=== PATIENT | female | born 1980 | race Caucasian/White ===

== ENCOUNTER 2020-03-17 00:45 | Emergency (ER) | payer OTHER ==
[~2020-03-17] VITALS: Ht 160 cm; Wt 49.9 kg
[2020-03-17 00:51] VITALS: Ht 160 cm; Wt 49.9 kg
[2020-03-17 06:21] VITALS: BP 108/77
== END 2020-03-17 06:21 | disposition home or self-care (01) ==
LOC: ED 00:45
DX: F17.210 Nicotine dependence, cigarettes, uncomplicated (principal)

== ENCOUNTER 2020-03-17 15:06 | Emergency (ER) | payer OTHER ==
[~2020-03-17] VITALS: Ht 167.6 cm; Wt 70.3 kg
[2020-03-17 15:12] VITALS: Ht 167.6 cm; Wt 70.3 kg
[2020-03-17 15:34] VITALS: BP 135/71
== END 2020-03-17 15:12 | disposition other institution (70) ==
LOC: ED 15:06
DX: R56.9 Unspecified convulsions (principal); Z76.0 Encounter for issue of repeat prescription

== ENCOUNTER 2020-03-17 15:06 | Emergency (ER) | payer OTHER | END 2020-03-17 15:35 | disposition other institution (70) | LOC: ED 15:06 | DX: Z02.89 Encounter for other administrative examinations (principal) ==